=== PATIENT | female | born 1955 | race Caucasian/White ===

== ENCOUNTER 2016-11-08 16:34 | Emergency (ER) | payer BC ==
[~2016-11-08] VITALS: Ht 157.5 cm; Wt 66.7 kg
[~2016-11-08 16:34] MED LIST: ASPIR-LOW81 MG PO; BLOOD GLUCOSE1 EAC2 MISC; BLOOD LANCETS1 EACH MC; CALCIUM600 MG PO; CYCLOBENZAPRINE10 MG PO; ELIQUIS5 MG PO; GABAPENTIN100 MG PO; GLUCOPHAGE500 MG PO; GLUCOSE1 EACH PO; HUMALOG100 UNITS/ SUB-Q; INSULIN SYRING1 EA10 MISC; LEVEMIR100 UNIT/1 SUB-Q; MAG-OXIDE400 MG PO; MELOXICAM15 MG PO; METFORMIN HCL500 MG PO; MICONAZOLE NITR45 GM VAGINAL; NORCO 10-325 T1 EACH PO; NORCO 5-325 TA1 EACH PO; OMEPRAZOLE20 MG PO; ONDANSETRON HCL4 MG PO; ONE TOUCH ULTR1 EACH VI; POTASSIUM CHLO20 ME1 PO; SENNA LAX8.6 MG PO; TERBINAFINE HC250 MG PO; TOPROL XL50 MG PO; TORSEMIDE20 MG PO; TRIAMTERENE-HC1 EAC1 PO; ULTRAM50 MG PO; VITAMIN D1000 UNI1 PO
[2016-11-08] MEDS ORDERED: LYRICA150 MG PO (16:56)
[2016-11-08] MEDS ORDERED: ULTRAM50 MG PO (16:58)
[2016-11-08] MEDS ORDERED: METFORMIN HCL500 MG PO (17:00)
[2016-11-08] MEDS ORDERED: FOLIC ACID0.8 MG (17:04)
[2016-11-08] MEDS ORDERED: VENTOLIN HFA18 GM (17:04)
[2016-11-08] MEDS ORDERED: ELIQUIS5 MG PO (17:05)
[2016-11-08] MEDS ORDERED: BIOTIN1 MG PO (17:07)
[2016-11-08] MEDS ORDERED: ATIVAN1 MG SL (18:38)
== END 2016-11-08 18:50 | disposition home or self-care (01) ==
LOC: ED 16:34
DX: E11.65 Type 2 diabetes mellitus with hyperglycemia (principal); E86.0 Dehydration; I10 Essential (primary) hypertension; E11.40 Type 2 diabetes mellitus with diabetic neuropathy, unspecified; Z87.891 Personal history of nicotine dependence; Z98.51 Tubal ligation status; Z88.2 Allergy status to sulfonamides; Z79.899 Other long term (current) drug therapy; Z79.82 Long term (current) use of aspirin; Z79.4 Long term (current) use of insulin
CPT/HCPCS: 80053; 81001; 85025; 96361; 96372; 96374; 96375; 99283; J2060; J2405; J7030

== ENCOUNTER 2017-01-13 12:26 | Emergency (ER) | payer BC ==
[~2017-01-13] VITALS: Ht 157.5 cm; Wt 72.6 kg
[~2017-01-13 12:26] MED LIST changes: +ATIVAN1 MG SL; +BIOTIN1 MG PO; +FOLIC ACID0.8 MG; +LYRICA150 MG PO; +VENTOLIN HFA18 GM
[2017-01-13] MEDS ORDERED: ZOFRAN ODT4 MG PO (17:08)
== END 2017-01-13 17:20 | disposition home or self-care (01) ==
LOC: ED 12:26
DX: R11.10 Vomiting, unspecified (principal); R10.9 Unspecified abdominal pain; E11.42 Type 2 diabetes mellitus with diabetic polyneuropathy; I10 Essential (primary) hypertension; Z87.891 Personal history of nicotine dependence; Z90.49 Acquired absence of other specified parts of digestive tract; Z98.51 Tubal ligation status; Z88.2 Allergy status to sulfonamides; Z79.899 Other long term (current) drug therapy; Z79.82 Long term (current) use of aspirin; Z79.4 Long term (current) use of insulin
CPT/HCPCS: 74177; 80053; 81001; 83605; 83690; 85025; 96361; 96374; 96375; 96376; 99284; J1885; J2270; J2405; J7030; Q9967

== ENCOUNTER 2017-02-05 18:21 | Emergency (ER) | payer BC ==
[~2017-02-05] VITALS: Ht 157.5 cm; Wt 72.6 kg
[~2017-02-05 18:21] MED LIST changes: +ZOFRAN ODT4 MG PO
[2017-02-06] MEDS ORDERED: PHENERGAN25 MG PR (00:12)
== END 2017-02-06 00:59 | disposition home or self-care (01) ==
LOC: ED 18:21
DX: R11.10 Vomiting, unspecified (principal); I11.0 Hypertensive heart disease with heart failure; I50.9 Heart failure, unspecified; E11.40 Type 2 diabetes mellitus with diabetic neuropathy, unspecified; E11.10 Type 2 diabetes mellitus with ketoacidosis without coma; Z87.891 Personal history of nicotine dependence; Z90.49 Acquired absence of other specified parts of digestive tract; Z98.51 Tubal ligation status; Z88.2 Allergy status to sulfonamides; Z79.899 Other long term (current) drug therapy; Z79.82 Long term (current) use of aspirin; Z79.4 Long term (current) use of insulin
CPT/HCPCS: 74022; 80053; 81001; 85025; 96361; 96365; 96375; 99283; J1885; J2405; J3475; J7030

== ENCOUNTER 2017-03-16 18:59 | Emergency (ER) | payer BC ==
[~2017-03-16] VITALS: Ht 157.5 cm; Wt 72.6 kg
[~2017-03-16 18:59] MED LIST changes: +PHENERGAN25 MG PR
[2017-03-16] MEDS ORDERED: LEVEMIR100 UNIT/1 SUB-Q (19:23)
== END 2017-03-16 21:52 | disposition home or self-care (01) ==
LOC: ED 18:59
DX: R11.2 Nausea with vomiting, unspecified (principal); R19.7 Diarrhea, unspecified; I10 Essential (primary) hypertension; E11.40 Type 2 diabetes mellitus with diabetic neuropathy, unspecified; Z87.891 Personal history of nicotine dependence; Z90.49 Acquired absence of other specified parts of digestive tract; Z98.51 Tubal ligation status; Z88.2 Allergy status to sulfonamides; Z79.82 Long term (current) use of aspirin; Z79.899 Other long term (current) drug therapy; Z79.4 Long term (current) use of insulin
CPT/HCPCS: 80053; 81001; 85025; 96361; 96374; 96376; 99283; J2405; J7030; J7040

== ENCOUNTER 2017-05-02 20:00 | Emergency (ER) | payer BC ==
[~2017-05-02] VITALS: Ht 157.5 cm; Wt 72.8 kg
[2017-05-02] MEDS ORDERED: ZOFRAN ODT4 MG PO (22:59)
[2017-05-02] MEDS ORDERED: KEFLEX500 MG PO (22:59)
== END 2017-05-02 23:20 | disposition home or self-care (01) ==
LOC: ED 20:00
DX: K52.9 Noninfective gastroenteritis and colitis, unspecified (principal); N39.0 Urinary tract infection, site not specified; I10 Essential (primary) hypertension; E11.40 Type 2 diabetes mellitus with diabetic neuropathy, unspecified; Z87.891 Personal history of nicotine dependence; Z88.2 Allergy status to sulfonamides; Z79.899 Other long term (current) drug therapy; Z79.4 Long term (current) use of insulin
CPT/HCPCS: 80053; 81001; 85025; 96374; 96375; 99283; J0696; J2405; J7030; J7040

== ENCOUNTER 2018-07-13 20:50 | Inpatient (IN) | payer BC ==
[~2018-07-13] VITALS: Ht 157.5 cm; Wt 87.8 kg
[~2018-07-13 20:50] MED LIST changes: +KEFLEX500 MG PO
[2018-07-13] MEDS ORDERED: LANTUS SOL100 UNIT/1 SUB-Q (21:35)
--- NOTE | 2018-07-14 | NUR ---
PT ARRIVED FROM ER AT 2340. PT WALKED TO BATHROOM AND VOIDED BUT MISSED THE HAT. PT IS AAOX4, ALL LOBES ARE CLEAR, BP IS ELEVATED AND SO IS HER HR. WILL CONTINUE TO MONITOR. MEDS TO BE GIVEN. RADIAL PULSES ARE +2, PEDIS PULSES +1, PT HAS BILATERAL LOWER LEG EDEMA +1, ABD SOUNDS ARE ACTIVE, ABD IS SOFT TO TOUCH AND PT HAS NO PAIN IN ABD AT THIS TIME. PT AT THIS TIME ALSO DENIES N/V. BG UPON ARRIVAL TO UNIT WAS 379. INSULIN DRIP TO BE STARTED.
--- NOTE | 2018-07-14 01:55 | NUR ---
PT AT 0145 COMPLAINED OF PAIN 7/10 AND NAUSEA. PRN TYLENOL AND 10MG OF COMPAZINE WAS GIVEN. IT WAS TOO EARLY TO GIVE ZOFRAN. BP AND HR HAVE DECREASED SINCE ARRIVAL IN CCU. SECOND IV SITE HAS BEEN ESTABLISHED. WILL CONTINUE TO MONITOR. LAB IN ROOM WITH PT FOR 0200 LAB DRAW. WILL CALL MD TARIQ WITH RESULTS.
--- NOTE | 2018-07-14 02:51 | NUR ---
AT THIS TIME NAUSEA HAS SUBSIDED AND PAIN IS 4/10 WHICH IS TOLERABLE FOR PT STATED BY HER. PT IS TRYING TO SLEEP. V/S ARE WDL AND SO IS URINE OUTPUT SO FAR. NO NEW CONCERNS NOTED.
--- NOTE | 2018-07-14 03:10 | NUR ---
MD TARIQ WAS NOTYFIED OF 0200 LABS. CURRENT IV FLUIDS ARE TO BE STOPPED. 1/2NS AT 250ML/HR TO BE STARTED. IF BG IS <200, D5% 1/2NS AT 250ML/HR TO BE STARTED.
--- NOTE | 2018-07-14 04:26 | NUR ---
PT AT THIS TIME IS SLEEPING. NO CHANGES WITH 0400 ASSESSMENT NOTED. V/S ARE WDL.
--- NOTE | 2018-07-14 06:07 | NUR ---
BG AT 0545 WAS 163. IV FLUID WAS CHANGED TO D5% 1/2NS @ 250ML/HR ORDERED. PT STATED THAT SHE IS FEELING BETTER. NO NEW CONCERNS NOTED.
--- NOTE | 2018-07-14 07:30 | NUR ---
REPORT RECIEVED. PATIENT IS RESTFUL IN BED.
--- NOTE | 2018-07-14 08:00 | NUR ---
ASSESSMENT DONE. ACCUCHECK-257. INSULIN GTT TO 8.4 UNITS/HR. TALKED WITH PATIENT ABOUT PLAN OF CARE FOR DAY. IS UNDERSTANDING. DENIES PAIN OF NAUSEA AT THIS TIME. STATES SHE FEELS BETTER TODAY.
--- NOTE | 2018-07-14 08:45 | NUR ---
ACCUCHECK-251. INSULIN GTT REMAINS AT 8.4 UNITS/HR. DAUGHTERS AT BEDSIDE.
--- NOTE | 2018-07-14 09:50 | NUR ---
DR. TARIQ HERE TO SEE PATIENT. ORDERS RECIEVED.
--- NOTE | 2018-07-14 10:00 | NUR ---
ACCUCHECK-212. ORDERS RECIEVED TO DC INUSLIN GTT. DIET INCREASED TO [address] CARRILLO AWARE OF HYPOTENSION, BOLUS OF LR 1 LITER HUNG.
--- NOTE | 2018-07-14 10:30 | NUR ---
LANTUS 105 UNITS SQ IN TWO SYRINGES GIVEN PER ORDERS. TOOK FEW BITES OF EGGS. C/O SLIGHT NAUSEA, ZOFRAN 4 MG IV GIVEN.
--- NOTE | 2018-07-14 11:00 | NUR ---
LITER BOLUS OF LR INFUSED. LR NOW AT 200 ML/HR. PATIENT DENEIS NEED TO VOID.
--- NOTE | 2018-07-14 11:17 | NUR ---
CRYING, C/O BILAT SHOULDER BLADE PAIN. DENIES INCRESED NAUSEA,SHORTNESS OF BREATH, W/O DIAPHORSIS, DENIES RADIATION OF PAIN TO JAW OF DOWN ARMS. STATES THE PAIN IS LESS WHEN SHOULDES RUBBED. ACCUCHECK DONE-191. LR CONTINUE TO INFUSE AT 2OO ML/HR.
--- NOTE | 2018-07-14 11:40 | NUR ---
SITTING AT BEDSIDE, BP-97/64 (71). STANDING 95/48(59). VERONICAS DIZZINESS.
--- NOTE | 2018-07-14 12:00 | NUR ---
UP TO COMMODE TO VOID 100 ML OF [address] URINE. [address]. TARIQ AWARE. WILL DO BLADDER SCAN.
--- NOTE | 2018-07-14 12:30 | NUR ---
BALDDER SCAN RESULTS=[address] TARIQ AWARE. IVF INCREASED TO 250 ML/HR.
--- NOTE | 2018-07-14 12:34 | EKG ---
[facility] [address] [place] [address] Signed Sinus tachycardia Otherwise normal ECG When compared with ECG of 04-APR-2016 10:43, Vent. rate has increased BY 51 BPM T wave inversion no longer evident in Inferior leads T wave inversion no longer evident in Anterolateral leads Confirmed by ABELARDO TARIQ MD ([id number]) on 07/14/2018 12:34:14 PM Electronically Signed By: ABELARDO TARIQ MD 07/14/18 1234 PATIENT NAME: DAVID VARGAS Electrocardiogram DATE OF : 53 PHYSICIAN: ABELARDO TARIQ MD REPORT #: [id number] REPORT IS CONFIDENTIAL AND NOT TO BE RELEASED WITHOUT AUTHORIZATION
--- NOTE | 2018-07-14 14:00 | NUR ---
sitting at bedside, ATTEMPING TO STAND. PATIENT IS SOMEWHAT UNSURE OF SITUATION. ASKED PATIENT IF SHE FELT FOGGY IN HER HEAD, STATES YES, SAID SHE DOES THIS AT HOME, THIS IS NOTHING NEW FOR HER. IS AWARE SHE IS IN HOSPITAL. ACCUCHECH-291. IVF LR AT 250 ML INFUSING. INC OF MED STOOL. BED LINEN CHANGED.
--- NOTE | 2018-07-14 14:20 | NUR ---
UP TO COMMODE TO EXPELL SEMI-LIQUID STOOL GREENISH IN COLOR. IS FOLLOWING DIECTIONS WELL. FAIRLY STABLE ON FEET. DENIES DIZZINESS AT THIS TIME. STATES SHE FEELS BETTER NO THAN THIS MORNING. BACK TO BED. WISHES TO NAP.
--- NOTE | 2018-07-14 16:00 | NUR ---
SITTING UP AT BEDSIDE, ASSESSMENT UNCHANGED.
--- NOTE | 2018-07-14 19:30 | NUR ---
RECEIVED REPORT AT 1900, FOUND PT IN BED WITH FAMILY AT BEDSIDE. PT HAD NO NEEDS OR COMPLAINTS AT THAT TIME. MD ENCISO WAS CALLED DUE TO LOW URINE OUTPUT FOR DAY SHIFT. NEW FLUID ORDERS WERE GIVEN AND PT WILL BE BLADDERSCANNED AT 1999. ORDER WAS ALS GIVEN TO HOLD ALL BP MEDS FOR MAP <65.
--- NOTE | 2018-07-14 20:30 | NUR ---
V/S AT THIS TIME ARE WDL. LOPRESSOR WAS HELD SINCE PT WAS WALKING AROUND AND SITTING UP WHEN BP WAS TAKEN. PT VOIDED 150ML AND POST VOID RESIDUAL WAS 15ML PER BLADDER SCAN. ALL LOBES ARE CLEAR ABD SOUNDS ARE PRESENT, ABD IS SOFT AND NON-TENDER TO TOUCH. S1 S2 HEARD BILATERAL LOWER LEG EDEMA IS UNCHANGED AT +1 PT IS AAOX4. BED ALARM WAS ACTIVATED SINCE PT FAILED TO CALL FOR ASSISTANCE WHILE FINISHING WITH THE BEDSIDE COMMODE. PT WAS FOUND WALKING AROUND IN ROOM. BG WAS 125, NO INSULIN WAS GIVEN. WILL CONINUE TO MONITOR.
--- NOTE | 2018-07-14 23:05 | NUR ---
ADMIT THIS 3 YR OLD MALE TO CCU WITH MOM IN ATTENDANCE. PT HAD ACCIDENTAL INGESTION OF PILLS. PT IS ALERT, VERY ACTIVE WITH VERY SHORT ATTENTION SPAN BUT IS DIRECTABLE FOR SHORT PERIODS. DRINKING JUICE AND WATER, ATE CRACKERS. CHEEKS ARE SOMEWHAT FLUSHED BUT IS AFEBRILE AT THIS TIME. HAD PT ATTEMPT TO VOID IN URINAL BUT VOIDED JUST PRIOR TO ADMISSION TO CCU IN ED. IV DRSG CHANGED WAS UNABLE TO FLUSH IV AND FOUND CATHETER KINKED. WAS ABLE TO UNKINK CATH AND FLUSH IV AND REDRESS IT. MOM IN BED WITH PT.
--- NOTE | 2018-07-14 23:13 | NUR ---
PT AT THIS TIME IS SLEEPING.
--- NOTE | 2018-07-14 23:13 | NUR ---
PT AT THIS TIME IS STILL SLEEPING. URINE OUTPUT HAS INCREASED SOME FOR 2200 I&O'S.
--- NOTE | 2018-07-14 23:58 | NUR ---
SECOND ASSESSMENT WAS UNCHANGED FROM THE FIRST ASSESSMENT. LR AT 150ML/HR IS RUNNING. WHILE SLEEPING PT DESATS TO ABOUT 88%-90% RA. WILL CONTINUE TO MONITOR.
--- NOTE | 2018-07-15 00:57 | NUR ---
PT A LITTLE WHILE AGO VOIDED 350ML. PT NOW IS BACK IN BED SLEEPING. NO NEW CONCERNS NOTED. MD ENCISO WAS ON THE UNIT AND INFORMED OF INCREASING URINE OUTPUT.
--- NOTE | 2018-07-15 02:00 | NUR ---
PT IS STILL SLEEPING. PT IS A VERY RESTLESS SLEEPER.
--- NOTE | 2018-07-15 04:36 | NUR ---
PT IS STILL SLEEPING AT THIS TIME. NO NEW COCNERNS NOTED.
--- NOTE | 2018-07-15 06:33 | NUR ---
PT SLEPT MOST OF THE NIGHT. URINE OUTPUT IS GOOD. IV FLUID RATE WAS DECREASED TO 125ML/HR PER MD ENCISO. V/S ARE WDL. NO NEW CONCERNS NOTED SO FAR.
--- NOTE | 2018-07-15 08:00 | NUR ---
AWAKE, ASSESSMENT DONE. STATES SLEPT WELL, FEELS MUCH BETTER TODAY. BREAKFAST ORDERED.
--- NOTE | 2018-07-15 08:29 | NUR ---
PATIENT CBG 68, NON SYMPTOMATIC. REPORT TO PRIMARY RN GENESIS. PROVIDED ATIENT WITH MILK AND SOCO CRACKERS. [place] [facility] [place] OF CLEAR UR[place]. PROVIDED PATIENT WITH WARM WASH CLOTH. NO COMPLAINTS OF PAIN AT THIS TIME. BREAKFAST ORDER CALLED TO KITCHEN.
[2018-07-15] MEDS ORDERED: METOPROLOL TART50 MG PO ×2 (08:54→10:48)
[2018-07-15] MEDS ORDERED: AMITRIPTYLINE H25 MG PO (08:55)
--- NOTE | 2018-07-15 09:00 | NUR ---
DR. ENCISO HERE TO SEE PATIENT, ORDERS RECIEVED TO DISCHARGE PATIENT. PATIENT TOOK BREAKFAST WELL.
--- NOTE | 2018-07-15 09:50 | NUR ---
TYLENOL 500 MG PO GIVEN FOR HIP PAIN. HAS BEEN UP IN ROOM, STABLE ON FEET.
--- NOTE | 2018-07-15 10:00 | NUR ---
MONITOR, IV SITE DC'D WITH CATH INTACT. C/O HIP PAIN.
--- NOTE | 2018-07-15 10:45 | NUR ---
DISCHARGE INSTRUCTIONS GIVEN WITH PATIENT UNDERSTANDING.
--- NOTE | 2018-07-15 10:55 | NUR ---
DISCHARGED TO HOME. TRANSPORTED VIA W/C TO CAR ACCOMP BY [facility]ER AND .
== END 2018-07-15 10:55 | disposition home or self-care (01) | DRG 638 ==
LOC: ED 20:50 → CCU 23:32
PROVIDERS: ADMIT Internal Medicine
DX: E11.10 Type 2 diabetes mellitus with ketoacidosis without coma (principal); K92.2 Gastrointestinal hemorrhage, unspecified; E86.0 Dehydration; I11.0 Hypertensive heart disease with heart failure; I50.9 Heart failure, unspecified; G89.4 Chronic pain syndrome; I48.0 Paroxysmal atrial fibrillation; M19.90 Unspecified osteoarthritis, unspecified site; G47.33 Obstructive sleep apnea (adult) (pediatric); F51.04 Psychophysiologic insomnia; D50.0 Iron deficiency anemia secondary to blood loss (chronic); E78.5 Hyperlipidemia, unspecified; E11.21 Type 2 diabetes mellitus with diabetic nephropathy; E11.40 Type 2 diabetes mellitus with diabetic neuropathy, unspecified; Z87.891 Personal history of nicotine dependence; Z88.2 Allergy status to sulfonamides; Z79.02 Long term (current) use of antithrombotics/antiplatelets; Z79.4 Long term (current) use of insulin; Z79.899 Other long term (current) drug therapy
CPT/HCPCS: 36415; 71045; 80048; 80053; 81001; 82010; 82800; 82803; 83690; 83735; 85025; 93005; 93010; 96361; 96374; 96375; 96376; 99285-25; J0780; J1170; J1815; J2405; J7030; J7042; J7120; Q0138

== ENCOUNTER 2018-08-19 14:31 | Emergency (ER) | payer BC ==
[~2018-08-19] VITALS: Ht 157.5 cm; Wt 92.3 kg
[~2018-08-19 14:31] MED LIST changes: +AMITRIPTYLINE H25 MG PO; +LANTUS SOL100 UNIT/1 SUB-Q; +METOPROLOL TART50 MG PO; +ZESTRIL5 MG PO
--- NOTE | 2018-08-19 17:29 | EKG ---
[facility] [address] [facility] [place] [address] Signed Normal sinus rhythm Nonspecific T wave abnormality Prolonged QT Abnormal ECG When compared with ECG of 13-JUL-2018 21:29, Vent. rate has decreased BY 48 BPM Nonspecific T wave abnormality, worse in Inferior leads Nonspecific T wave abnormality now evident in Lateral leads Confirmed by ESTUARDO HERNANDEZ DO ([id number]) on 08/19/2018 5:28:55 PM Electronically Signed By: ESTUARDO HERNANDEZ DO 08/19/18 1729 PATIENT NAME: DAVID VARGAS Electrocardiogram DATE OF : 53 PHYSICIAN: ESTUARDO HERNANDEZ DO REPORT #: [id number] REPORT IS CONFIDENTIAL AND NOT TO BE RELEASED WITHOUT AUTHORIZATION
== END 2018-08-19 19:11 | disposition home or self-care (01) ==
LOC: ED 14:31
DX: R56.9 Unspecified convulsions (principal); E86.0 Dehydration; I95.9 Hypotension, unspecified; I10 Essential (primary) hypertension; E11.40 Type 2 diabetes mellitus with diabetic neuropathy, unspecified; Z87.891 Personal history of nicotine dependence; Z88.2 Allergy status to sulfonamides; Z79.899 Other long term (current) drug therapy; Z79.4 Long term (current) use of insulin
CPT/HCPCS: 36415; 70450; 71045; 80053; 81001; 84146; 84484; 85025; 93005; 93010; 96360; 96361; 99285-25; J7030

== ENCOUNTER 2019-07-21 16:04 | Emergency (ER) | payer BC, MEDICARE ==
[~2019-07-21] VITALS: Ht 157.5 cm; Wt 92.1 kg
[2019-07-21] MEDS ORDERED: TORSEMIDE20 MG PO (18:00)
[2019-07-21] MEDS ORDERED: K-TAB ER20 MEQ PO (18:00)
--- NOTE | 2019-07-22 17:57 | EKG ---
[facility] [address] [facility] [place] [address] Signed Sinus tachycardia Moderate voltage criteria for LVH, may be normal variant Nonspecific T wave abnormality Abnormal ECG When compared with ECG of 19-AUG-2018 15:42, No significant change was found Confirmed by ESTUARDO HERNANDEZ DO ([id number]) on 07/22/2019 5:57:00 PM Electronically Signed By: ESTUARDO HERNANDEZ DO 07/22/19 1757 PATIENT NAME: DAVID VARGAS Electrocardiogram DATE OF : 53 PHYSICIAN: ESTUARDO HERNANDEZ DO REPORT #: [id number] REPORT IS CONFIDENTIAL AND NOT TO BE RELEASED WITHOUT AUTHORIZATION
== END 2019-07-21 18:14 | disposition home or self-care (01) ==
LOC: ED 16:04
DX: J81.1 Chronic pulmonary edema (principal); I10 Essential (primary) hypertension; I48.91 Unspecified atrial fibrillation; E11.40 Type 2 diabetes mellitus with diabetic neuropathy, unspecified; Z87.891 Personal history of nicotine dependence; Z88.2 Allergy status to sulfonamides; Z79.899 Other long term (current) drug therapy
CPT/HCPCS: 71046; 80053; 83880; 84484; 85025; 93005; 93010; 99285-25; U0002

== ENCOUNTER 2019-10-08 12:54 | Emergency (ER) | payer MEDICARE ==
[~2019-10-08] VITALS: Ht 157.5 cm; Wt 84.4 kg
[~2019-10-08 12:54] MED LIST changes: +K-TAB ER20 MEQ PO
--- NOTE | 2019-10-09 14:33 | EKG ---
[facility] [address] [facility] [place], [place] [address] Signed Sinus tachycardia Possible Left atrial enlargement Left ventricular hypertrophy Nonspecific ST abnormality Abnormal ECG When compared with ECG of 21-JUL-2019 16:20, No significant change was found Confirmed by MAXIMINO ENCISO MD ([id number]) on 10/09/2019 2:33:19 PM Electronically Signed By: MAXIMINO ENCISO MD 10/09/19 1433 PATIENT NAME: DAVID VARGAS Electrocardiogram DATE OF : 53 PHYSICIAN: MAXIMINO ENCISO MD REPORT #: [id number] REPORT IS CONFIDENTIAL AND NOT TO BE RELEASED WITHOUT AUTHORIZATION
== END 2019-10-08 19:50 | disposition home or self-care (01) ==
LOC: ED 12:54
DX: R11.2 Nausea with vomiting, unspecified (principal); R19.7 Diarrhea, unspecified; R00.0 Tachycardia, unspecified; K21.9 Gastro-esophageal reflux disease without esophagitis; I10 Essential (primary) hypertension; I48.91 Unspecified atrial fibrillation; E11.40 Type 2 diabetes mellitus with diabetic neuropathy, unspecified; Z87.891 Personal history of nicotine dependence; Z88.2 Allergy status to sulfonamides; Z88.5 Allergy status to narcotic agent; Z79.899 Other long term (current) drug therapy; Z79.4 Long term (current) use of insulin
CPT/HCPCS: 80053; 81001; 83735; 84484; 85025; 93005; 93010; 96374; 96375; 99284-25; J1815; J2405

== ENCOUNTER 2020-03-20 13:52 | Emergency (ER) | payer MEDICARE ==
[~2020-03-20] VITALS: Ht 157.5 cm; Wt 81.9 kg
[2020-03-20] MEDS ORDERED: DULOXETINE HCL60 MG PO (14:17)
[2020-03-20] MEDS ORDERED: ZOFRAN4 MG PO (16:55)
[2020-03-20] MEDS ORDERED: PANTOPRAZOLE SO40 MG PO (16:55)
== END 2020-03-20 18:57 | disposition home or self-care (01) ==
LOC: ED 13:52
DX: K29.70 Gastritis, unspecified, without bleeding (principal); E86.0 Dehydration; I10 Essential (primary) hypertension; I48.91 Unspecified atrial fibrillation; E11.40 Type 2 diabetes mellitus with diabetic neuropathy, unspecified; Z88.2 Allergy status to sulfonamides; Z79.899 Other long term (current) drug therapy; Z79.4 Long term (current) use of insulin
CPT/HCPCS: 74177; 80053; 81001; 83690; 85025; 96374; 96375; 96376; 99284-25; J2270; J2405; J7030; J7121; Q9967

== ENCOUNTER 2020-05-12 13:30 | Emergency (ER) | payer MEDICARE ==
[~2020-05-12] VITALS: Ht 157.5 cm; Wt 81.9 kg
[~2020-05-12 13:30] MED LIST changes: +DULOXETINE HCL60 MG PO; +PANTOPRAZOLE SO40 MG PO; +ZOFRAN4 MG PO
[2020-05-12] MEDS ORDERED: ATORVASTATIN CA40 MG PO (13:44)
[2020-05-12] MEDS ORDERED: METOPROLOL SUCC50 MG PO (13:44)
[2020-05-12] MEDS ORDERED: PROMETHAZINE HC25 M1 PO (18:58)
--- NOTE | 2020-05-14 13:45 | EKG ---
[facility] [address] [facility] [place], [place] [address] Signed Sinus tachycardia Nonspecific ST abnormality Abnormal ECG When compared with ECG of 08-OCT-2019 15:17, No significant change was found Confirmed by ABELARDO TARIQ MD ([id number]) on 05/14/2020 1:44:50 PM Electronically Signed By: ABELARDO TARIQ MD 05/14/20 1345 PATIENT NAME: DAVID VARGAS Electrocardiogram DATE OF : 53 PHYSICIAN: ABELARDO TARIQ MD REPORT #: [id number] REPORT IS CONFIDENTIAL AND NOT TO BE RELEASED WITHOUT AUTHORIZATION
== END 2020-05-12 20:40 | disposition home or self-care (01) ==
LOC: ED 13:30
DX: K52.9 Noninfective gastroenteritis and colitis, unspecified (principal); I10 Essential (primary) hypertension; I48.91 Unspecified atrial fibrillation; E11.40 Type 2 diabetes mellitus with diabetic neuropathy, unspecified; Z87.891 Personal history of nicotine dependence; Z79.899 Other long term (current) drug therapy; Z79.4 Long term (current) use of insulin
CPT/HCPCS: 71045; 80053; 81001; 83690; 83735; 84484; 85025; 93005; 93010; 96374; 96375; 96376; 99284-25; J2405; J2550; J7030